=== PATIENT | male | born 1995 | race African-American/Black ===

== ENCOUNTER 2021-07-25 18:59 | Emergency (ER) | payer SELFPAY ==
[2021-07-25] MEDS ORDERED: Acetaminophen 500 MG TAB ONE (20:15)
[2021-07-25 21:51] LABS: SARS-CoV-2 NAA Rapid Test Not Detected (NotDetected)
== END 2021-07-25 20:45 | disposition home or self-care (01) ==
LOC: ERS 18:59
DX: R50.9 Fever, unspecified (principal); R11.2 Nausea with vomiting, unspecified; Z20.822 Contact with and (suspected) exposure to COVID-19; F17.210 Nicotine dependence, cigarettes, uncomplicated
CPT/HCPCS: 0240U; 71045

== ENCOUNTER 2021-08-04 06:20 | Inpatient (IN) | payer SELFPAY ==
[2021-08-04] MEDS ORDERED: EPINEPHrine 1 MG/10 ML Abboject SYRINGE ONE (06:25)
[2021-08-04] MEDS ORDERED: Sodium Bicarb 50 MEQ/50 ML Abboject 8.4% SYRINGE ONE ×2 (06:25→07:10)
[2021-08-04] MEDS ORDERED: Fentanyl CADD 100 ML IV SCH (07:00)
[2021-08-04 07:08] LABS: Actual Bicarbonate (HCO3a) 7.1 mEq/L (22-28); Analyzer IN Cardio ER; Base Excess (BEa) -26.6 mEq/L (-2.0 to +3.0); CO2 Tension 45.3 mmHg (35.0-45.0); Calcium, Ionized (arterial) 0.92 mmol/L (1.12-1.30); Carboxyhemoglobin (COHb) 0.1 gm% (0.0-3.0); Hemoglobin (Hb) 10.7 g/dL (14.0-18.0); O2 Tension (PaO2), arterial 79.3 mmHg (80.0-100.0); Potassium - ABG Lab 4.31 mmol/L (3.70-5.30)
[2021-08-04 07:13] LABS: PTT 44.9 sec (22.9-36.1); Prothrombin Time 31.6 sec (12.0-14.7)
[2021-08-04 07:16] LABS: pH, Arterial 6.81 (7.35-7.45)
[2021-08-04 07:17] LABS: ALV-art Gradient 577.075 mmHg (0-20); Puncture Site LFA
[2021-08-04 07:20] LABS: ALT (SGPT) 64 U/L (8-55); AST (SGOT) 152 U/L (5-34); Albumin 1.6 g/dL (3.5-5.0); Alkaline Phosphatase 309 U/L (40-110); Bilirubin, Total 7.6 mg/dL (0.2-1.2); Calc. Creatinine Clearance 0 mL/min (70-130); Calcium 6.9 mg/dL (7.8-10.44); Chloride 93 mmol/L (98-107); Globulin 3.8 g/dL (2.4-3.5); Glucose 101 mg/dL (70-105); Potassium 4.5 mmol/L (3.5-5.1); Protein, Total 5.4 g/dL (6.0-8.3); Sodium 135 mmol/L (136-145)
[2021-08-04] MEDS ORDERED: Norepinephrine 8 MG/0.9% NS 250 ML ONE ×3 (07:26→14:47)
[2021-08-04 07:31] LABS: BUN (Urea Nitrogen) 133 mg/dL (8.9-20.6)
[2021-08-04 07:38] LABS: Carbon Dioxide Less than 8 mmol/L (22-29)
[2021-08-04 07:44] LABS: Band 42 % (5-11); Hemoglobin 11.8 g/dL (14.0-18.0); Lymphocytes 8 % (21-51); MDiff Complete? YES; Mean Corpuscular HGB CONC 31.7 g/dL (32.0-36.0); Mean Corpuscular Hemoglobin 29.1 pg (27.0-31.0); Mean Corpuscular Volume 91.8 fL (78.0-98.0); Mean Platelet Volume 13.1 fL (7.4-10.4); Metamyelocyte 7 % (0-0); Monocytes 4 % (0-10); Myelocyte 1 % (0-0); Neutrophil 37 % (42-75); Nucleated RBC 2 % (0); Platelet Count 32 thou/uL (130-400); Platelet Morphology Comment Appears Decreased; RBC Distribution Width 14.1 % (11.5-14.5); Reactive Lymphocytes 1 % (0-10); Red Blood Cell (RBC) Count 4.05 mill/uL (4.70-6.10); Reflex for Review?? YES; White Blood Cell (WBC) Count 48.6 thou/uL (4.8-10.8)
[2021-08-04 07:47] LABS: Bacteria/HPF 2+ HPF (None Seen); Bilirubin 2+ (Negative); Blood, Urine 1+ (Negative); CKMB 9.8 ng/mL (0-6.6); Clarity Extra Turbid (Clear); Glucose, Urine (Dipstick) 50 mg/dL (Negative); Ketone, Urine Negative (Negative); Leukocyte 250 Leu/uL (Negative); Nitrite Negative (Negative); Protein, Urine (Dipstick) 50 mg/dL (Neg-Trace); Specific Gravity, Urine 1.027 (1.002-1.036)
[2021-08-04] MEDS ORDERED: Sodium Bicarbonate 150 MEQ in Dextrose 5% in Water 1,000 ML IV SCH (08:00)
[2021-08-04] MEDS ORDERED: EPINEPHrine 4 MG in Dextrose 5% in Water 250 ML IV SCH (08:00)
[2021-08-04 08:04] LABS: Actual Bicarbonate (HCO3a) 14.9 mEq/L (22-28); Analyzer IN Cardio ER; Base Excess (BEa) -13.5 mEq/L (-2.0 to +3.0); CO2 Tension 45.2 mmHg (35.0-45.0); Calcium, Ionized (arterial) 0.83 mmol/L (1.12-1.30); Carboxyhemoglobin (COHb) 0.3 gm% (0.0-3.0); Hemoglobin (Hb) 9.7 g/dL (14.0-18.0); O2 Tension (PaO2), arterial 94.9 mmHg (80.0-100.0); Potassium - ABG Lab 5.19 mmol/L (3.70-5.30)
[2021-08-04 08:05] LABS: Puncture Site RBA; pH, Arterial 7.14 (7.35-7.45)
[2021-08-04 08:34] LABS: SARS-CoV-2 NAA Rapid Test Not Detected (NotDetected)
[2021-08-04] MEDS ORDERED: Cefepime 2 GM VIAL ONE (09:01)
[2021-08-04] MEDS ORDERED: Dexamethasone 10 MG/ML VIAL ONE (09:01)
[2021-08-04] MEDS ORDERED: VANCOMYCIN 2 GRAM/400 ML BAG 2 GM in Premix Bag 1 BAG IVPB SCH (09:15)
[2021-08-04] MEDS ORDERED: Magnesium 2 GM/50 ML BAG (IN WATER) ONE (09:44)
[2021-08-04] MEDS ORDERED: Ondansetron PF 4 MG/2 ML Vial IVP PRN (10:03)
[2021-08-04] MEDS ORDERED: Acetaminophen 650 MG Suppository PR PRN (10:03)
[2021-08-04] MEDS ORDERED: Electrolyte Replacement Protocol 1 EACH IVPB PRN (10:03)
[2021-08-04] MEDS ORDERED: Phenylephrine 40 MG in Sodium Chloride 0.9% 250 ML 250 ML IVPB PRN (10:03)
[2021-08-04 10:42] LABS: Troponin I 0.332 ng/mL (< 0.028)
[2021-08-04 10:45] LABS: Actual Bicarbonate (HCO3a) 7.4 mEq/L (22-28); Analyzer IN Cardio ER; Base Excess (BEa) -24.7 mEq/L (-2.0 to +3.0); CO2 Tension 40.3 mmHg (35.0-45.0); Carboxyhemoglobin (COHb) 0.3 gm% (0.0-3.0); Hemoglobin (Hb) 9.4 g/dL (14.0-18.0); O2 Tension (PaO2), arterial 117.1 mmHg (80.0-100.0)
[2021-08-04 10:47] LABS: Creatinine, Urine 248.26 mg/dL (63-166); Protein, Urine Random Quant 100 mg/dL (1-14); Sodium, Urine Less than 20 mmol/L (Not Available); Urea Nitrogen, Random Urine 238 mg/dl
[2021-08-04 10:49] LABS: ALV-art Gradient 545.525 mmHg (0-20); Puncture Site LRA; pH, Arterial 6.88 (7.35-7.45)
[2021-08-04 10:59] LABS: Amphetamine Not Detected (NotDetected); Barbiturates Screen Not Detected (NotDetected); Benzodiazepine Screen Not Detected (NotDetected); Cocaine Metabolite Screen Not Detected (NotDetected); Methadone Not Detected (NotDetected); Methamphetamine Detected (NotDetected); Opiate Screen Not Detected (NotDetected); Oxycodone Screen Not Detected (NotDetected); Phencyclidine (PCP) Not Detected (NotDetected); THC/Cannabinoid Screen Not Detected (NotDetected); Tricyclic Screen Not Detected (NotDetected)
[2021-08-04] MEDS ORDERED: Albumin 25% 25 GM/100 ML BOT IVPB STA (11:03)
[2021-08-04 11:23] LABS: Lactic Acid 20.3 mmol/L (0.5-2.2)
[2021-08-04] MEDS ORDERED: Phenylephrine 40 MG in Sodium Chloride 0.9% 250 ML 250 ML IVPB SCH (11:30)
[2021-08-04 11:36] LABS: Complement-C4 5.8 mg/dL (15-53)
[2021-08-04 12:27] LABS: Band 61 % (5-11); Burr Cells SLIGHT = 2-5 cells (100X) (0-1/hpf); Helmet Cells SLIGHT = 2-5 cells (100X) (0-1/hpf); Hemoglobin 8.2 g/dL (14.0-18.0); Hypochromia SLIGHT = 6-15 cells (100X) (0-5/hpf); Lymphocytes 10 % (21-51); MDiff Complete? YES; Mean Corpuscular Hemoglobin 29.2 pg (27.0-31.0); Mean Platelet Volume 10.9 fL (7.4-10.4); Metamyelocyte 1 % (0-0); Monocytes 9 % (0-10); Myelocyte 1 % (0-0); Neutrophil 18 % (42-75); Nucleated RBC 2 % (0); Platelet Count 28 thou/uL (130-400); Platelet Morphology Comment Appears Decreased; Polychromasia SLIGHT = 2-3 cells (100X) (0-2/hpf); RBC Distribution Width 14.1 % (11.5-14.5); Red Blood Cell (RBC) Count 2.81 mill/uL (4.70-6.10); Schistocytes SLIGHT = 2-5 cells (100X) (0-1/hpf); White Blood Cell (WBC) Count 37.7 thou/uL (4.8-10.8)
[2021-08-04 12:32] LABS: Acetaminophen Less than 6.0 mcg/mL (10.0-30.0); Alcohol Less than 10 mg/dL (Less than 10); Salicylate Less than 8.0 mg/dL (15.0-30.0)
[2021-08-04 12:48] LABS: Hep B Surf Ag Non-Reactive S/CO (NonReactive)
[2021-08-04 12:49] LABS: HBSAg Index 0.23 S/CO (0-0.99); Hep C IgG Ab Non-Reactive (NonReactive); Hep C Index 0.19 S/CO (0-0.79)
[2021-08-04 12:50] LABS: Hep A IgM AB Non-Reactive (NonReactive)
[2021-08-04 12:51] LABS: Hep A IgM S/CO 0.13 S/CO (0-0.79)
[2021-08-04 12:52] LABS: HBCM Index 0.06 S/CO (0-0.79); Hepatitis B Core IgM Abs Non-Reactive (NonReactive)
[2021-08-04] MEDS ORDERED: Calcium Gluconate 9.2 MEQ in Sodium Chloride 0.9% 200 ML IVPB SCH (13:00)
[2021-08-04 13:28] LABS: ALT (SGPT) 369 U/L (8-55); AST (SGOT) 1145 U/L (5-34); Albumin 1.4 g/dL (3.5-5.0); Alkaline Phosphatase 450 U/L (40-110); Anion Gap 46 mmol/L (10-20); BUN (Urea Nitrogen) 110 mg/dL (8.9-20.6); BUN/Creatinine Ratio 16.67; Bilirubin, Total 7.1 mg/dL (0.2-1.2); Calc. Creatinine Clearance 23 mL/min (70-130); Calcium 5.7 mg/dL (7.8-10.44); Carbon Dioxide 8 mmol/L (22-29); Chloride 90 mmol/L (98-107); Globulin 2.8 g/dL (2.4-3.5); Glucose 95 mg/dL (70-105); Potassium 5.5 mmol/L (3.5-5.1); Protein, Total 4.2 g/dL (6.0-8.3); Sodium 138 mmol/L (136-145)
[2021-08-04 13:42] LABS: Lactic Acid 24.1 mmol/L (0.5-2.2)
[2021-08-04 13:46] LABS: Phosphorus Greater than 19.0 mg/dL (2.3-4.7)
[2021-08-04 13:57] LABS: Ferritin 16895.58 ng/mL (22-322)
[2021-08-04] MEDS ORDERED: metroNIDAZOLE 500 MG in Premix Bag 1 BAG IVPB SCH (14:00)
[2021-08-04 14:17] LABS: Actual Bicarbonate (HCO3a) 7.1 mEq/L (22-28); Base Excess (BEa) -25.7 mEq/L (-2.0 to +3.0); CO2 Tension 42.8 mmHg (35.0-45.0); Calcium, Ionized (arterial) 0.79 mmol/L (1.12-1.30); Carboxyhemoglobin (COHb) 0.3 gm% (0.0-3.0); Hemoglobin (Hb) 9.1 g/dL (14.0-18.0); O2 Tension (PaO2), arterial 85.6 mmHg (80.0-100.0); Potassium - ABG Lab 6.33 mmol/L (3.70-5.30); Puncture Site LBA; pH, Arterial 6.84 (7.35-7.45)
[2021-08-04 14:33] VITALS: BMI 30.8
[2021-08-04] MEDS ORDERED: Propofol BOLUS 1,000 MG/100 ML VIAL IV PRN (14:45)
[2021-08-04] MEDS ORDERED: Morphine 4 MG/ML VIAL SLOW IVP PRN (14:45)
[2021-08-04] MEDS ORDERED: DISCONTINUE PREVIOUS NARCOTIC PAIN MEDICATIONS AND BENZODIAZEPINES FS SCH (14:45)
[2021-08-04] MEDS ORDERED: Fentanyl BOLUS 250 ML IVPB PRN (14:45)
[2021-08-04] MEDS ORDERED: Morphine 2 MG/ML VIAL SLOW IVP PRN (14:45)
[2021-08-04] MEDS ORDERED: Lorazepam 2 MG/ML VIAL SLOW IVP PRN (14:45)
[2021-08-04] MEDS ORDERED: Propofol 1,000 MG/100 ML VIAL IV PRN (14:45)
[2021-08-04 16:30] VITALS: TEMP 97.1
[2021-08-04 16:36] LABS: Hemoglobin 6.6 g/dL (14.0-18.0); Mean Corpuscular HGB CONC 30.5 g/dL (32.0-36.0); Mean Corpuscular Hemoglobin 29.7 pg (27.0-31.0); Mean Corpuscular Volume 97.5 fL (78.0-98.0); Mean Platelet Volume 4.4 fL (7.4-10.4); Platelet Count 31 thou/uL (130-400); RBC Distribution Width 14.5 % (11.5-14.5); Red Blood Cell (RBC) Count 2.21 mill/uL (4.70-6.10); White Blood Cell (WBC) Count 40.1 thou/uL (4.8-10.8)
[2021-08-04 16:55] LABS: Anisocytosis SLIGHT = 6-15 cells (100X) (0-5/hpf); Band 46 % (5-11); Lymphocytes 13 % (21-51); MDiff Complete? YES; Metamyelocyte 3 % (0-0); Myelocyte 5 % (0-0); Neutrophil 25 % (42-75); Poikilocytosis SLIGHT = 6-15 cells (100X) (0-5/hpf); Reflex for Review?? NO
[2021-08-04 17:26] LABS: Lactic Acid 23.5 mmol/L (0.5-2.2)
[2021-08-04 17:27] LABS: ALT (SGPT) 920 U/L (8-55); AST (SGOT) 3339 U/L (5-34); Albumin 1.9 g/dL (3.5-5.0); Alkaline Phosphatase 438 U/L (40-110); BUN (Urea Nitrogen) 120 mg/dL (8.9-20.6); Bilirubin, Total 7.8 mg/dL (0.2-1.2); Calc. Creatinine Clearance 26 mL/min (70-130); Calcium 5.8 mg/dL (7.8-10.44); Carbon Dioxide Less than 8 mmol/L (22-29); Chloride 94 mmol/L (98-107); Globulin 2.3 g/dL (2.4-3.5); Glucose 45 mg/dL (70-105); Potassium 6.6 mmol/L (3.5-5.1); Protein, Total 4.2 g/dL (6.0-8.3); Sodium 139 mmol/L (136-145)
[2021-08-04] MEDS ORDERED: Norepinephrine 8 MG/0.9% NS 250 ML IVPB SCH (17:30)
[2021-08-04] MEDS ORDERED: Calcium Chloride 1 GM/10 ML Abboject SYRINGE ONE (17:36)
[2021-08-04] MEDS ORDERED: Calcium Chloride 1 GM/10 ML Abboject SYRINGE IVP SCH (17:40)
[2021-08-04] MEDS ORDERED: Racepinephrine 2.25% 0.5 ML NEB ONE (17:48)
[2021-08-04] MEDS ORDERED: Insulin Regular 300 UNITS/3 ML VIAL ONE (17:51)
[2021-08-04] MEDS ORDERED: Vasopressin 20 UNIT, Admixture Fee 1 EACH in Sodium Chloride 0.9% 50 ML IV SCH (18:00)
[2021-08-04 18:42] LABS: Albumin 1.7 g/dL (3.5-5.0); BUN (Urea Nitrogen) 125 mg/dL (8.9-20.6); BUN/Creatinine Ratio 20.53; CK (CPK) 1077 U/L (30-200); Calc. Creatinine Clearance 27 mL/min (70-130); Calcium 10.5 mg/dL (7.8-10.44); Carbon Dioxide Less than 8 mmol/L (22-29); Chloride 89 mmol/L (98-107); Glucose 453 mg/dL (70-105); Potassium 7.4 mmol/L (3.5-5.1); Sodium 129 mmol/L (136-145)
[2021-08-04 18:49] LABS: Phosphorus Greater than 19.0 mg/dL (2.3-4.7)
[2021-08-04] MEDS ORDERED: Vancomycin 1 GM in Premix Bag 1 BAG IVPB SCH (21:00)
[2021-08-04] MEDS ORDERED: Cefepime 2 GM in Sodium Chloride 0.9% 100 ML IVPB SCH (21:00)
[2021-08-05] MEDS ORDERED: Cefepime 1 GM in Sodium Chloride 0.9% 100 ML IVPB SCH (09:00)
[2021-08-05 15:51] LABS: ANA Symphony (Qualitative) Negative (Negative); ANA Symphony (Quantitative) 0.2 Ratio (< 0.7 Negative)
== END 2021-08-04 20:25 | disposition expired | DRG 871 ==
LOC: ERS 06:20 → ERHOLD 08:34 → CCU 14:11
PROVIDERS: ADMIT Internal Medicine; ATTEND Internal Medicine
PROC: 5A1935Z Respiratory Ventilation, Less than 24 Consecutive Hours (ICD-10-PCS; principal; 2021-08-04)
PROC: 3E033XZ Introduction of Vasopressor into Peripheral Vein, Percutaneous Approach (ICD-10-PCS; 2021-08-04)
PROC: 06HY33Z Insertion of Infusion Device into Lower Vein, Percutaneous Approach (ICD-10-PCS; 2021-08-04)
PROC: 30233L1 Transfusion of Nonautologous Fresh Plasma into Peripheral Vein, Percutaneous Approach (ICD-10-PCS; 2021-08-04)
PROC: 30233N1 Transfusion of Nonautologous Red Blood Cells into Peripheral Vein, Percutaneous Approach (ICD-10-PCS; 2021-08-04)
PROC: 30233R1 Transfusion of Nonautologous Platelets into Peripheral Vein, Percutaneous Approach (ICD-10-PCS; 2021-08-04)
PROC: 30233K1 Transfusion of Nonautologous Frozen Plasma into Peripheral Vein, Percutaneous Approach (ICD-10-PCS; 2021-08-04)
PROC: 5A2204Z Restoration of Cardiac Rhythm, Single (ICD-10-PCS; 2021-08-04)
PROC: 0D9670Z Drainage of Stomach with Drainage Device, Via Natural or Artificial Opening (ICD-10-PCS; 2021-08-04)
PROC: 0BH17EZ Insertion of Endotracheal Airway into Trachea, Via Natural or Artificial Opening (ICD-10-PCS; 2021-08-04)
PROC: 5A12012 Performance of Cardiac Output, Single, Manual (ICD-10-PCS; 2021-08-04)
DX: A41.9 Sepsis, unspecified organism (principal); R65.21 Severe sepsis with septic shock; J18.9 Pneumonia, unspecified organism; D65 Disseminated intravascular coagulation [defibrination syndrome]; J96.01 Acute respiratory failure with hypoxia; I33.0 Acute and subacute infective endocarditis; I21.A1 Myocardial infarction type 2; N17.9 Acute kidney failure, unspecified; E87.2 Acidosis; J90 Pleural effusion, not elsewhere classified; I47.2 Ventricular tachycardia; E11.9 Type 2 diabetes mellitus without complications; F41.9 Anxiety disorder, unspecified; F90.9 Attention-deficit hyperactivity disorder, unspecified type; E86.0 Dehydration; D72.823 Leukemoid reaction; E88.09 Other disorders of plasma-protein metabolism, not elsewhere classified; M06.9 Rheumatoid arthritis, unspecified; F15.90 Other stimulant use, unspecified, uncomplicated; G89.29 Other chronic pain; F17.210 Nicotine dependence, cigarettes, uncomplicated; Z20.822 Contact with and (suspected) exposure to COVID-19; R94.5 Abnormal results of liver function studies; I49.01 Ventricular fibrillation; Z88.8 Allergy status to other drugs, medicaments and biological substances; Z78.1 Physical restraint status; F32.A Depression, unspecified; I46.9 Cardiac arrest, cause unspecified
CPT/HCPCS: 31500; 36430; 36556; 36600; 51702; 71045; 74018; 80053; 80074; 80306; 80307; 81003; 81015; 82533; 82550; 82553; 82570; 82728; 82805; 83605; 84156; 84300; 84484; 84540; 85025; 85060; 85384; 85610; 85652; 85730; 86038; 86140; 86160; 86225; 86850; 86900; 86901; 87040; 92950; 93005; 94002; 96360; 96361; 96365; 96366; 96367; 96368; 96374; 96376; 99292; J0171; J0692; J1100; J1815; J2001; J3010; J3475; J3490; J7070; P9016; P9035; P9047; P9059; U0002